=== PATIENT | female | born 1935 | race Two or more races ===

== ENCOUNTER 2023-08-25 17:30 | Emergency (ER) | payer OTHER ==
[~2023-08-25] VITALS: Ht 161.3 cm; Wt 43.5 kg
[2023-08-25] MEDS ORDERED: ZOCOR20 MG PO (18:13)
[2023-08-25] MEDS ORDERED: COZAAR100 MG PO (18:13)
[2023-08-25] MEDS ORDERED: ELIQUIS2.5 MG PO (18:13)
[2023-08-25] MEDS ORDERED: RISPERDAL0.5 MG PO (18:13)
[2023-08-25] MEDS ORDERED: ANTIVERT25 M2 PO (18:13)
[2023-08-25] MEDS ORDERED: ISOSORBIDE MONO60 MG PO (18:14)
[2023-08-25] MEDS ORDERED: JANUMET 50-1,01 EACH PO (18:14)
[2023-08-25] MEDS ORDERED: KETOROLAC TROMETHAMINE 30 MG VIAL IM ONE (21:15)
[2023-08-25] MEDS ORDERED: TYLENOL ARTHRI650 MG PO (23:20)
== END 2023-08-26 00:07 | disposition home or self-care (01) ==
LOC: ER 17:30
DX: S70.02XA Contusion of left hip, initial encounter (principal); W19.XXXA Unspecified fall, initial encounter; Y93.89 Activity, other specified; Y92.098 Other place in other non-institutional residence as the place of occurrence of the external cause; Y99.8 Other external cause status; I10 Essential (primary) hypertension; E03.8 Other specified hypothyroidism; E11.9 Type 2 diabetes mellitus without complications
CPT/HCPCS: 36415; 71111; 72100; 73521; 73551; 96372; 99283; J1885